=== PATIENT | female | born 1960 | race Two or more races ===

== ENCOUNTER 2018-03-29 09:20 | Outpatient (CLI) | payer OTHER | END 2018-03-29 09:24 | disposition home or self-care (01) | LOC: MAMO-SONO 09:20 | DX: N63.10 Unspecified lump in the right breast, unspecified quadrant (principal); N63.20 Unspecified lump in the left breast, unspecified quadrant; Z12.31 Encounter for screening mammogram for malignant neoplasm of breast ==

== ENCOUNTER → 2018-03-29 10:55 | Outpatient (CLI) | payer OTHER | END | disposition home or self-care (01) | LOC: LAB 10:55 | DX: C83.98 Non-follicular (diffuse) lymphoma, unspecified, lymph nodes of multiple sites (principal); N39.0 Urinary tract infection, site not specified; E55.9 Vitamin D deficiency, unspecified; M81.0 Age-related osteoporosis without current pathological fracture ==

== ENCOUNTER 2018-04-18 08:45 | Outpatient (CLI) | payer OTHER | END 2018-04-18 09:00 | disposition home or self-care (01) | LOC: NUCLEAR 08:45 | DX: C83.98 Non-follicular (diffuse) lymphoma, unspecified, lymph nodes of multiple sites (principal) | CPT/HCPCS: 78815; A9552 ==

== ENCOUNTER → 2018-12-30 11:26 | Outpatient (CLI) | payer OTHER | END | disposition home or self-care (01) | LOC: LAB 11:26 | DX: J11.1 Influenza due to unidentified influenza virus with other respiratory manifestations (principal); R05 Cough ==

== ENCOUNTER 2019-04-09 18:24 | Outpatient (CLI) | payer OTHER | END 2019-04-09 18:47 | disposition home or self-care (01) | LOC: LAB 18:24 | DX: J11.1 Influenza due to unidentified influenza virus with other respiratory manifestations (principal) ==

== ENCOUNTER 2020-05-17 12:25 | Outpatient (CLI) | payer OTHER | END 2020-05-17 12:47 | disposition home or self-care (01) | LOC: TOM 12:25 | PROVIDERS: ATTEND Urology | DX: N20.0 Calculus of kidney (principal); N20.1 Calculus of ureter ==

== ENCOUNTER 2020-05-17 13:47 | Outpatient (CLI) | payer OTHER | END 2020-05-17 13:59 | disposition home or self-care (01) | LOC: LAB 13:47 | PROVIDERS: ATTEND Urology | DX: N20.1 Calculus of ureter (principal) ==

== ENCOUNTER 2020-06-14 22:23 | Emergency (ER) | payer OTHER ==
[~2020-06-14] VITALS: Ht 157.5 cm; Wt 124.7 kg
== END 2020-06-15 07:26 | disposition home or self-care (01) ==
LOC: ER 22:23
DX: N20.0 Calculus of kidney (principal); R10.31 Right lower quadrant pain; Z11.52 Encounter for screening for COVID-19

== ENCOUNTER 2020-07-16 08:01 | Day surgery (SDC) | payer OTHER ==
[~2020-07-16 08:01] MED LIST: NAPR500T14 PO; TAMS0.4C PO
== END 2020-07-16 20:40 | disposition home or self-care (01) ==
LOC: CIR.AMB 08:01
PROVIDERS: ATTEND Urology
DX: N20.1 Calculus of ureter (principal); Z20.822 Contact with and (suspected) exposure to COVID-19

== ENCOUNTER 2020-11-30 14:08 | Inpatient (IN) | payer OTHER ==
[~2020-11-30] VITALS: Ht 157.5 cm; Wt 122.5 kg
== END 2020-12-04 15:10 | disposition home or self-care (01) | DRG 690 ==
LOC: ER 14:08 → SEC-K 21:33 → MEDJ 12-01 16:27
PROVIDERS: ADMIT Internal Medicine; ATTEND Internal Medicine
PROC: BW21ZZZ Computerized Tomography (CT Scan) of Abdomen and Pelvis (ICD-10-PCS; principal; 2020-11-30)
DX: N39.0 Urinary tract infection, site not specified (principal); B96.4 Proteus (mirabilis) (morganii) as the cause of diseases classified elsewhere; M79.3 Panniculitis, unspecified; I88.8 Other nonspecific lymphadenitis; K52.89 Other specified noninfective gastroenteritis and colitis; E66.01 Morbid (severe) obesity due to excess calories; Z20.822 Contact with and (suspected) exposure to COVID-19

== ENCOUNTER → 2020-12-24 | Outpatient (CLI) | payer OTHER | END | disposition home or self-care (01) | LOC: SONOGRAMA 12:15 → MAMO-SONO 13:45 | PROVIDERS: ATTEND Urology | DX: N20.1 Calculus of ureter (principal); R31.1 Benign essential microscopic hematuria ==

== ENCOUNTER 2022-07-11 09:39 | Outpatient (CLI) | payer OTHER | END 2022-07-11 09:58 | disposition home or self-care (01) | LOC: MRI 09:39 | PROVIDERS: ATTEND Orthopaedic Surgery | DX: M25.561 Pain in right knee (principal); M25.562 Pain in left knee; S83.200A Bucket-handle tear of unspecified meniscus, current injury, right knee, initial encounter | CPT/HCPCS: 73721 ==